=== PATIENT | female | born 1975 | race Hispanic/Latino ===

== ENCOUNTER 2016-10-19 10:12 | Emergency (ER) | payer SELFPAY ==
[~2016-10-19] VITALS: Ht 162.6 cm; Wt 87.0 kg
[~2016-10-19 10:12] MED LIST: CLARITIN,ALAVAR10 MG PO; PREDNISONE20 MG PO
[2016-10-19 12:10] LABS: INFLUENZA A VIRAL ANTIGEN NEGATIVE; INFLUENZA B VIRAL ANTIGEN NEGATIVE
[2016-10-19 13:30] LABS: HEMATOCRIT 38.4 % (36.0-46.0); MCH 30.5 PG (29.0-34.0); MCHC 35.7 G/DL (30.0-36.0); MCV 85.5 FL (83-99); MEAN PLAT.VOLUME 9.7 uM^3 (9.5-12.4); PLATELET COUNT 253 K/uL (156-360); RBC DIS.WIDTH-CV 12.8 % (11.8-14.6); RBC DIS.WIDTH-SD 39.1 % (39-53); RED BLOOD COUNT 4.49 M/uL (3.80-5.20); WHITE BLOOD COUNT 20.1 K/uL (4.1-10.2)
[2016-10-19 13:31] LABS: BASOPHIL COUNT 0.1 K/uL (0-0.1); EOSINOPHIL (%) 0.1 % (0-5); IMMATURE GRANULOCYTE (%) 0.5 % (0.0-0.7); MONOCYTE (%) 8.9 % (3-12); MONOCYTE COUNT 1.8 K/uL (0-0.8); NEUTROPHIL (%) 80.4 % (45-76); NEUTROPHIL COUNT 16.2 K/uL (1.8-6.4)
[2016-10-19 14:09] LABS: CHLORIDE 104 mEq/L (99-109); POTASSIUM 3.6 mEq/L (3.7-5.4); SODIUM 136 mEq/L (136-147)
[2016-10-19 14:11] LABS: GLUCOSE 111 mg/dL (70-99)
[2016-10-19 14:12] LABS: ANION GAP 9 MEQ/L (2-14)
[2016-10-19 14:13] LABS: TOTAL BILIRUBIN 0.5 mg/dL (0.0-1.0)
[2016-10-19 14:14] LABS: ALKALINE PHOSPHATASE 72 IU/L (3-129)
[2016-10-19 14:15] LABS: GFR ESTIMATE (CALCULATED) > 59 mL/min/
[2016-10-19 14:16] LABS: UREA NITROGEN (BUN) 10 mg/dL (9-23)
[2016-10-19 14:26] LABS: QUANTITATIVE HCG < 4.0 MIU/ML
[2016-10-19 14:29] LABS: HEMATOLOGY COMMENT 1 SMEAR COMPATIBLE; PLAT.SUFFICIENCY ADEQUATE
[2016-10-19 15:33] LABS: BILIRUBIN NEGATIVE; BLOOD NEGATIVE; COLOR YELLOW ((YELLOW)); GLUCOSE (STRIP) NEGATIVE; KETONES 20; LEUKOCYTES NEGATIVE; NITRITE NEGATIVE; PROTEIN (STRIP) 30; SPECIFIC GRAVITY 1.014 (1.000-1.030); UROBILINOGEN 0.2 MG/DL (0.2-1.0)
[2016-10-19 15:38] LABS: ADD MIUA? NO
[2016-10-19] MEDS ORDERED: MOTRIN800 MG PO (16:58)
[2016-10-19] MEDS ORDERED: AUGMENTIN875 MG PO (16:58)
[2016-10-19 17:50] VITALS: BP 132/81
== END 2016-10-19 17:51 | disposition home or self-care (01) ==
LOC: EME 10:12
PROVIDERS: Emergency Medicine
DX: R53.1 Weakness (principal); R50.9 Fever, unspecified; J02.0 Streptococcal pharyngitis; R05 Cough; R51 Headache; M79.1 Myalgia; H92.09 Otalgia, unspecified ear; R09.81 Nasal congestion
CPT/HCPCS: 71020; 80053; 81003; 84702; 85025; 87502; 87651 90; 99281; 99285; J0295; J7030; J7050

== ENCOUNTER 2017-05-22 04:18 | Emergency (ER) | payer SELFPAY ==
[~2017-05-22] VITALS: Ht 165.1 cm; Wt 89.4 kg
[~2017-05-22 04:18] MED LIST changes: +AUGMENTIN875 MG PO; +MOTRIN800 MG PO
[2017-05-22 04:54] LABS: ADD MIUA? YES; BILIRUBIN NEGATIVE; BLOOD NEGATIVE; COLOR YELLOW ((YELLOW)); GLUCOSE (STRIP) NEGATIVE; KETONES NEGATIVE; LEUKOCYTES NEGATIVE; NITRITE NEGATIVE; PROTEIN (STRIP) 30; SPECIFIC GRAVITY 1.028 (1.000-1.030)
[2017-05-22 05:07] LABS: HEMATOCRIT 36.8 % (36.0-46.0); MCH 30.6 PG (29.0-34.0); MCHC 35.1 G/DL (30.0-36.0); MCV 87.2 FL (83-99); MEAN PLAT.VOLUME 10.4 uM^3 (9.5-12.4); PLATELET COUNT 291 K/uL (156-360); RBC DIS.WIDTH-CV 12.9 % (11.8-14.6); RBC DIS.WIDTH-SD 40.3 % (39-53); RED BLOOD COUNT 4.22 M/uL (3.80-5.20); WHITE BLOOD COUNT 9.9 K/uL (4.1-10.2)
[2017-05-22 05:18] LABS: BACTERIA NONE SEEN /HPF; CRYSTALS PRESENT; EPITHELIAL CELLS 1+ /HPF; MUCUS 1+ /LPF; RED BLOOD CELLS NONE SEEN /HPF (0-5); UCUL ADDED? NO; WHITE BLOOD CELLS NONE SEEN /HPF (0-5)
[2017-05-22 05:19] LABS: AMORPHOUS URATES CRYSTALS 2+; CALCIUM OXALATE CRYSTALS 3+ /HPF
[2017-05-22 05:36] LABS: ANION GAP 9 MEQ/L (2-14); CHLORIDE 105 MEQ/L (99-109); DIRECT BILIRUBIN 0.1 mg/dL (0.0-0.3); POTASSIUM 3.7 MEQ/L (3.7-5.4); SAMPLE HEMOLYSIS CHECK 0; SAMPLE ICTERIC CHECK 0; SAMPLE LIPEMIA CHECK 0; SODIUM 138 MEQ/L (136-147); TOTAL BILIRUBIN 0.4 MG/DL (0.0-1.0)
[2017-05-22 05:41] LABS: ALKALINE PHOSPHATASE 81 IU/L (3-129); GFR ESTIMATE (CALCULATED) > 59 mL/min/; GLUCOSE 135 mg/dL (70-99); LIPASE 21 U/L (1.0-51.0); UREA NITROGEN (BUN) 13 mg/dL (9-23)
[2017-05-22 05:45] LABS: TROP-I INTERPRETATION NEGATIVE; TROPONIN-I 0.03 ng/mL (0.0-0.30)
[2017-05-22] MEDS ORDERED: ZANTAC150 MG PO (05:52)
[2017-05-22 06:21] VITALS: BP 134/68
== END 2017-05-22 06:26 | disposition home or self-care (01) ==
LOC: EME 04:18
PROVIDERS: Emergency Medicine
DX: K29.00 Acute gastritis without bleeding (principal); K80.70 Calculus of gallbladder and bile duct without cholecystitis without obstruction; K76.0 Fatty (change of) liver, not elsewhere classified; K57.30 Diverticulosis of large intestine without perforation or abscess without bleeding; F10.99 Alcohol use, unspecified with unspecified alcohol-induced disorder
CPT/HCPCS: 74176; 76705; 80048; 80076; 81003; 83690; 84484; 85027; 93005; 99281; 99283

== ENCOUNTER 2017-06-04 20:29 | Emergency (ER) | payer SELFPAY ==
[~2017-06-04] VITALS: Ht 170.2 cm; Wt 88.2 kg
[~2017-06-04 20:29] MED LIST changes: +ZANTAC150 MG PO
[2017-06-04] MEDS ORDERED: MEDROL DOSEPAK4 MG PO (20:53)
[2017-06-04] MEDS ORDERED: KENALOG,ARISTOC80 G1 TP (20:53)
[2017-06-04 21:05] VITALS: BP 156/89
== END 2017-06-04 21:06 | disposition home or self-care (01) ==
LOC: EME 20:29
DX: L23.5 Allergic contact dermatitis due to other chemical products (principal); T65.891A Toxic effect of other specified substances, accidental (unintentional), initial encounter
CPT/HCPCS: 99281; 99283